=== PATIENT | female | born 1970 | race Caucasian/White ===

== ENCOUNTER → 2016-09-06 | Outpatient (CLI) | payer BC | LOC: WI 08:00 | DX: N64.4 Mastodynia (principal) | CPT/HCPCS: 77066; G0204 ==

== ENCOUNTER 2019-01-31 17:41 | Emergency (ER) | payer BC ==
[2019-01-31] MEDS ORDERED: IBUPROFEN 600 MG TABLET PO ONE (20:41)
--- NOTE | 2019-01-31 21:08 | ER Document Report ---
ED Cardiac - General Chief Complaint: Chest Wall Pain Stated Complaint: RIB PAIN Time Seen by Provider: 01/31/19 20:32 Primary Care Provider: LELO NELSON MD [Primary Care Provider] - Follow up as needed Information source: Patient Notes: HPI: Patient is a 48-year-old female who states around 8 days ago she started to get some nontraumatic right sided chest discomfort to the anterior lateral wall. She states it is worse when she coughs, sneezes, or twists her torso. She denies any fevers, shortness of breath, calf pain or leg swelling, recent trips or travel, or anterior pain. She denies any trauma. She does smoke. ROS: See HPI All other review of systems reviewed and otherwise negative Reviewed vital signs and nursing note as charted by RN. PHYSICAL EXAM: CONSTITUTIONAL: Alert and oriented and responds appropriately to questions. Well-appearing; well-nourished HEAD: Normocephalic; atraumatic NECK: Supple without meningismus; non-tender; no cervical lymphadenopathy, no masses CARD: Regular rate and rhythm; no murmurs; symmetric distal pulses RESP: Normal chest excursion without splinting or tachypnea; tenderness to palpation of the right anterior lateral ribs without any obvious swelling, crepitus, or erythema; breath sounds clear and equal bilaterally ABD/GI: Normal bowel sounds; non-distended; soft, non-tender to deep palpation including all 4 quadrants of the abdomen including the right upper quadrant BACK: The back appears normal and is non-tender to palpation EXT: Normal ROM in all joints; non-tender to palpation; no edema SKIN: No acute lesions noted NEURO: CN 2-12 intact; 5/5 bilateral upper and lower extremity strength with sensation intact to light touch PSYCH: The patient's mood and manner are appropriate. Grooming and personal h ygiene are appropriate. TRAVEL OUTSIDE OF THE [place] IN LAST 30 DAYS: No - Related Data Allergies/Adverse Reactions: codeine [Codeine] Adverse Reaction (Verified 01/31/19 18:00) Past Medical History - Social History Smoking Status: Current Every Day Smoker Family History: Reviewed & Not Pertinent Patient has suicidal ideation: No Patient has homicidal ideation: No - Past Medical History Cardiac Medical History: Reports: Hx Hypertension Renal/ Medical History: Denies: Hx Peritoneal Dialysis GI Medical History: Reports: Hx Gastroesophageal Reflux Disease Past Surgical History: Reports: Hx Orthopedic Surgery - Cervical spine - Immunizations Hx Diphtheria, Pertussis, Tetanus Vaccination: Yes Physical Exam - Vital signs Vitals: Temp Pulse Resp BP Pulse Ox 98 F 90 18 125/79 98 01/31/19 18:03 01/31/19 18:03 01/31/19 18:03 01/31/19 18:03 01/31/19 18:03 Course - Re-evaluation Re-evalutation: Given the history and physical examination, with heart rate and vital signs as recorded, with good room air oxygen saturation, with no complaints of shortness of breath, worse when she sneezes, coughs, or twist, I will obtain an x-ray of the chest and an EKG. I do believe PE, dissection, and ACS to be extremely unlikely. This does appear to be most likely musculoskeletal in nature. 01/31/19 21:12 EKG shows a heart of 71, normal sinus rhythm, normal axis, no ST elevation or depression 01/31/19 21:40 Chest x-ray shows normal heart, normal mediastinum, no fractures, normal lung capps, no pneumothorax. Imaging as recorded. Vital signs are stable. Patient will be discharged home with strict return precautions and a short course of pain medications with follow-up with primary doctor. - Vital Signs Vital signs: Temp Pulse Resp BP Pulse Ox 98 F 90 18 125/79 98 01/31/19 18:03 01/31/19 18:03 01/31/19 18:03 01/31/19 18:03 01/31/19 18:03 Discharge - Discharge Clinical Impression: Rib pain Condition: Good Disposition: HOME, SELF-CARE Additional Instructions: Come back immediately for any increased pain, change in location or quality of pain, shortness of breath, fevers, vomiting, leg swelling, or any other acute problems. Please take the narcotic medication every 8 hours as needed in addition to a 600 mg of ibuprofen every 6 hours for the next 5 days. Please follow-up with the primary care physician. Prescriptions: Hydrocodone/Acetaminophen [[place] 5-325 mg Tablet] 1 tab PO Q8 PRN #12 tablet PRN Reason: Referrals: LELO NELSON MD [Primary Care Provider] - Follow up as needed
--- NOTE | 2019-01-31 21:23 | RADIOLOGY REPORT (SQ) ---
EXAM DESCRIPTION: XR CHEST 2 VIEWS COMPLETED DATE/TME: 01/31/2019 20:41 CLINICAL HISTORY: 33; right chest wall pain COMPARISON: June 04, 2015 FINDINGS: Cardiac silhouette is within normal limits. There is no focal parenchymal or pleural disease. There is no acute osseous process visualized. IMPRESSION: No evidence of acute cardiopulmonary disease.
[2019-01-31 22:00] VITALS: BP 121/74
--- NOTE | 2019-02-01 22:39 | EKG REPORT ---
SEVERITY:- ABNORMAL ECG - SINUS RHYTHM CONSIDER ANTEROSEPTAL INFARCT : Confirmed by: Cassie Abreu MD 01-Feb-2019 22:38:34
== END 2019-01-31 22:19 | disposition home or self-care (01) ==
LOC: ER 17:41
DX: R07.81 Pleurodynia (principal); F17.200 Nicotine dependence, unspecified, uncomplicated; I10 Essential (primary) hypertension
CPT/HCPCS: 71046; 93005; 93010; 99283

== ENCOUNTER 2019-07-28 12:21 | Emergency (ER) | payer SELFPAY ==
[2019-07-28] MEDS ORDERED: CYCLOBENZAPRINE HCL 10 MG TABLET PO ONE (13:07)
--- NOTE | 2019-07-28 13:09 | ER Document Report ---
ED Medical Screen (RME) - General Chief Complaint: Back Pain Stated Complaint: BACK PAIN Time Seen by Provider: 07/28/19 13:00 Primary Care Provider: MICKY AHUJA MD [Primary Care Provider] - Follow up as needed Mode of Arrival: Ambulatory Information source: Patient, Relative - Daughter Notes: 49-year-old female patient presented emergency department with chief complaint of acute low back pain. Patient apparently has new onset dementia. Her family is in triage with her helping to answer questions. They report that the pain started approximately 6 days ago, the states she is usually very active. They report the pain has been making her very immobile and states that she has been crying each day. They state they have tried using topical patches as well as [id number]-[id number] medications without any relief. They state that the pain is getting worse. Denies any bowel or bladder incontinence or saddle anesthesia. Exam: Midline tenderness over the lumbar area, no vertebral step-off or deformity, tenderness over the lumbar paraspinous region. I have greeted and performed a rapid initial assessment of this patient. A comprehensive ED assessment and evaluation of the patient, analysis of test results and completion of the medical decision making process will be conducted by additional ED providers. I have specifically instructed the patient or family members with the patient to immediately return to any nursing staff should anything change in the patient's condition or with their chief complaint. TRAVEL OUTSIDE OF THE [place] IN LAST 30 DAYS: No - Related Data Allergies/Adverse Reactions: NSAIDS (Non-Steroidal Anti-Inflamma Allergy (Verified 07/28/19 13:01) codeine [Codeine] Adverse Reaction (Verified 01/31/19 18:00) Past Medical History - Past Medical History Cardiac Medical History: Reports: Hx Hypertension Renal/ Medical History: Denies: Hx Peritoneal Dialysis GI Medical History: Reports: Hx Gastroesophageal Reflux Disease Past Surgical History: Reports: Hx Orthopedic Surgery - Cervical spine - Immunizations Hx Diphtheria, Pertussis, Tetanus Vaccination: Yes Physical Exam - Vital signs Vitals: Temp Pulse Resp BP Pulse Ox 97.9 F 94 17 122/84 97 07/28/19 12:24 07/28/19 12:24 07/28/19 12:24 07/28/19 12:24 07/28/19 12:24 Course - Vital Signs Vital signs: Temp Pulse Resp BP Pulse Ox 97.9 F 94 17 122/84 97 07/28/19 12:24 07/28/19 12:24 07/28/19 12:24 07/28/19 12:24 07/28/19 12:24 Doctor's Discharge - Discharge Referrals: MICKY AHUJA MD [Primary Care Provider] - Follow up as needed
[2019-07-28 13:47] LABS: APPEARANCE,URINE CLOUDY; BILIRUBIN,URINE NEGATIVE (NEGATIVE); COLOR,URINE YELLOW; GLUCOSE, URINE NEGATIVE (NEGATIVE); KETONES,URINE NEGATIVE (NEGATIVE); PROTEIN,URINE NEGATIVE (NEGATIVE); URINE SPECIFIC GRAVITY 1.017; UROBILINOGEN,URINE NEGATIVE mg/dL (<2.0)
--- NOTE | 2019-07-28 17:43 | RADIOLOGY REPORT (SQ) ---
EXAM DESCRIPTION: CT LUMBAR SPINE WITHOUT COMPLETED DATE/TIME: 07/28/2019 2:43 pm REASON FOR STUDY: low back pain x6 days/worsening COMPARISON: None. TECHNIQUE: Axial images acquired through the lumbar spine without intravenous contrast. Images revi ewed with lung, soft tissue and bone windows. Reconstructed coronal and sagittal MPR images reviewed . All images stored on PACS. All CT scanners at this facility use dose modulation, iterative reconstruction, and/or weight based d osing when appropriate to reduce radiation dose to as low as reasonably achievable (ALARA). [facility]: Dose Right [facility]: CareDose [facility]: Dose Right [facility]: Teradose 4D [facility]: [email or web address] RADIATION DOSE: CT Rad equipment meets quality standard of care and radiation dose reduction techniq ues were employed. CTDIvol: 7.8 mGy. DLP: 221 mGy-cm. mGy. LIMITATIONS: None. FINDINGS: SEGMENTATION: Normal. No transitional anatomy. ALIGNMENT: Normal. VERTEBRAL BODIES: No fractures. No dislocation. No acute findings. DISCS: No significant protrusions. Study limited by lack of intrathecal contrast. PEDICLES, TRANSVERSE PROCESSES: No fractures. No dislocation. No acute findings. FACETS, POSTERIOR ELEMENTS: No fractures. No dislocation. No spinal stenosis. HARDWARE: None in the spine. VISUALIZED RIBS: No fractures. SOFT TISSUES: Scattered calcific atherosclerosis. Normal appendix. OTHER: No other significant finding. IMPRESSION: No fracture dislocation of the lumbar spine. Disc spaces are well preserved without sig nificant osteophytosis. There is no obvious disc or epidural pathology on noncontrast CT. MRI may b e used to further evaluate disc and neural foraminal pathology if desired. TECHNICAL DOCUMENTATION: JOB ID: [id number] Quality ID # [id number]: Final reports with documentation of one or more dose reduction techniques (e.g., Au tomated exposure control, adjustment of the mA and/or kV according to patient size, use of iterative reconstruction technique) 2010 [employer]- All Rights Reserved Reading location - IP/workstation name: [email or web address]
[2019-07-28 17:55] VITALS: BP 116/83
[2019-07-28] MEDS ORDERED: CEPHALEXIN 500 MG CAPSULE PO ONE (17:58)
--- NOTE | 2019-07-28 18:00 | ER Document Report ---
HPI - HPI Time Seen by Provider: 07/28/19 13:00 Pain Level: 5 Notes: 49-year-old female patient presented emergency department with chief complaint of acute low back pain. Patient apparently has new onset dementia. Her family is in triage with her helping to answer questions. They report that the pain started approximately 6 days ago, the states she is usually very active. They report the pain has been making her very immobile and states that she has been crying each day. They state they have tried using topical patches as well as cyyf-zyl-pfkvehe medications without any relief. They state that the pain is getting worse. Denies any bowel or bladder incontinence or saddle anesthesia. - REPRODUCTIVE Reproductive: DENIES: : Past Medical History - General Information source: Patient, Relative - Daughter - Social History Smoking Status: Current Every Day Smoker Chew tobacco use (# tins/day): No Frequency of alcohol use: None Drug Abuse: None Family History: Reviewed & Not Pertinent Patient has suicidal ideation: No Patient has homicidal ideation: No - Past Medical History Cardiac Medical History: Reports: Hx Hypertension Renal/ Medical History: Denies: Hx Peritoneal Dialysis GI Medical History: Reports: Hx Gastroesophageal Reflux Disease Past Surgical History: Reports: Hx Orthopedic Surgery - Cervical spine - Immunizations Hx Diphtheria, Pertussis, Tetanus Vaccination: Yes Vertical Provider Document - CONSTITUTIONAL Notes: PHYSICAL EXAMINATION: GENERAL: Well-appearing, well-nourished and in no acute distress. LUNGS: Breath sounds clear to auscultation bilaterally and equal. No wheezes rales or rhonchi. HEART: Regular rate and rhythm without murmurs, rubs, gallops. ABDOMEN: Soft, nontender, nondistended abdomen. No guarding, no rebound. No masses appreciated. Normal bowel sounds present. No CVA tenderness bilaterally. No pulsatile mass Musculoskeletal: LE's b/l: FROM to passive/active. Strength 5+/5. No deficits noted. No bony tenderness of extremities. Back: FROM to passive/active. Strength 5+/5. No vertebral point tenderness, stepoffs, or deformities. No other bony tenderness, erythema, swelling, or ecchymosis. SLR negative b/l. + mild tenderness to the L-paraspinal mm b/l. Mild spasming. No SI jt tenderness. No foot drop Extremities: No cyanosis, clubbing, or edema b/l. Peripheral pulses 2+. Capillary refill less than 2 seconds. NEUROLOGICAL: Normal speech, ataxic gait. Normal sensory, motor exams. Reflexes 2+ b/l. PSYCH: Normal mood, normal affect. SKIN: Warm, Dry, normal turgor, no rashes or lesions noted. - INFECTION CONTROL TRAVEL OUTSIDE OF THE [place] IN LAST 30 DAYS: No Course - Re-evaluation Re-evalutation: Laboratory 07/28/19 13:15 Urine Color YELLOW Urine Appearance CLOUDY Urine pH 6.0 Ur Specific [place] 1.017 Urine Protein NEGATIVE Urine Glucose (UA) NEGATIVE Urine Ketones NEGATIVE Urine Blood MODERATE H Urine Nitrite (Reflex) NEGATIVE Urine Bilirubin NEGATIVE Urine Urobilinogen NEGATIVE Leukocyte Esterase Rfl LARGE H Urine RBC (Auto) 8 Urine Bacteria (Auto) TRACE Urine WBC (Reflex) 39 Squamous Epi Cells Auto 22 Urine Mucus (Auto) RARE Urine Ascorbic Acid NEGATIVE Lumbar Spine CT 07/28/19 13:06 IMPRESSION: No fracture dislocation of the lumbar spine. Disc spaces are well preserved without significant osteophytosis. There is no obvious disc or epidural pathology on noncontrast CT. MRI may be used to further evaluate disc and neural foraminal pathology if desired. Patient is an afebrile, well-hydrated, 49-year-old female who presents to the ED with acute low back pain. Vitals are acceptable. PE is otherwise unremarkable for any focal neurological deficits. Patient was given medications here in the ED for symptoms. She has no significant tachycardia, tachypnea, or hypoxia. She is nontoxic-appearing and is tolerating p.o. without difficulties. Her urinalysis does show signs of UTI.. No other red flag symptoms noted. No other labs or imaging warranted at this time based on H&P. Low suspicion for any meningitis, fracture, expanding/ruptured AAA, cauda equina syndrome, epidural mass lesion/abscess, herniated disc causing severe spinal stenosis, or other systemic infection at this time. Patient is aware that this condition can change from initial presentation and that she needs monitor symptoms closely for any acute changes. I will send her home with a prescription for muscle relaxer. Conservative measures otherwise for symptoms. Recheck with your PCM in 3-5 days. Consider consult with orthopedic/physical therapy. Return to the ED with any worsening/concerning symptoms otherwise as reviewed discharge. Patient is in agreement. - Vital Signs Vital signs: Temp Pulse Resp BP Pulse Ox 98.1 F 95 18 116/83 97 07/28/19 17:54 07/28/19 17:54 07/28/19 17:54 07/28/19 17:54 07/28/19 17:54 - Laboratory Laboratory results interpreted by me: 07/28/19 13:15 Urine Blood MODERATE H Leukocyte Esterase Rfl LARGE H Discharge - Discharge Clinical Impression: Acute low back pain Qualifiers: Back pain laterality: bilateral Sciatica presence: without sciatica Qualified Code(s): M54.5 - Low back pain UTI (urinary tract infection) Qualifiers: Urinary tract infection type: acute cystitis Hematuria presence: without hematuria Qualified Code(s): N30.00 - Acute cystitis without hematuria Condition: Stable Disposition: HOME, SELF-CARE Additional Instructions: The CAT scan done of your lumbar spine does not show any acute or dangerous l izzy-threatening findings. Your pain is likely coming from a musculoskeletal strain. Take acetaminophen 650 mg every 4-6 hours for pain. Use the muscle relaxer as prescribed. Your urine shows findings consistent with a urinary tract infection. Please take all the antibiotics as directed even if your symptoms have improved. Please follow-up with your primary care physician as needed. Return to emergency room if you develop fever >101F, persistent vomiting, become lethargic, have severe pain in your sides, or any other symptoms that are concerning to you. Prescriptions: Cyclobenzaprine HCl [Flexeril 10 mg Tablet] 10 mg PO TIDP PRN #15 tab PRN Reason: Cephalexin [Keflex] 500 mg PO BID #14 capsule Referrals: MICKY AHUJA MD [ACTIVE STAFF] - Follow up as needed
== END 2019-07-28 18:43 | disposition home or self-care (01) ==
LOC: ER 12:21
DX: M54.5 Low back pain (principal); N30.00 Acute cystitis without hematuria; F03.90 Unspecified dementia, unspecified severity, without behavioral disturbance, psychotic disturbance, mood disturbance, and anxiety; I10 Essential (primary) hypertension; F17.200 Nicotine dependence, unspecified, uncomplicated
CPT/HCPCS: 72131; 81001; 99284